=== PATIENT | female | born 1955 | race Caucasian/White ===

== ENCOUNTER → 2016-03-21 | Outpatient (CLI) | payer BC ==
--- NOTE | 2016-03-22 07:31 | RADRPT ---
PROCEDURE: Limited x-ray of both lower extremities. CLINICAL INDICATION: Bilateral leg pain. TECHNIQUE: Single frontal view of both lower extremities was obtained weight bearing from the hips t o the calves. COMPARISON: None. FINDINGS: The hips are normal. There is mild narrowing of the right knee lateral joint space, as well as media l and lateral osteophyte formation. Lateral osteophyte formation is also seen involving the left kn ee. IMPRESSION: 1. Normal hips. 2. Mild bilateral knee osteoarthrosis. RPTAT: QQ .Jeffery Mei MD, MD Date Time Electronically viewed and signed by .Jeffery Mei MD, MD on 03/22/2016 07:31 .R/
== END | disposition home or self-care (01) ==
LOC: HKI 10:12
PROVIDERS: ATTEND Orthopaedic Surgery
DX: Z01.818 Encounter for other preprocedural examination (principal); M17.0 Bilateral primary osteoarthritis of knee; M25.561 Pain in right knee; M25.562 Pain in left knee; Z88.0 Allergy status to penicillin
CPT/HCPCS: 77073; Z7500; G0463

== ENCOUNTER 2016-04-03 07:29 | Inpatient (IN) | payer BC ==
[2016-03-21 14:20] VITALS: BMI 24.4
[~2016-04-03] VITALS: Ht 175.3 cm; Wt 85.3 kg
[2016-04-03] VITALS (31 sets, daily range): BP systolic 89–127; BP diastolic 50–79; PULSE 59–87; RESP 11–30; Ht 175.3 cm; Wt 85.3 kg
[2016-04-03] MEDS: PAIN COCKTAIL - VANCOMYCIN IRR SCH ×14 (07:00→11:30)
[~2016-04-03 07:29] MED LIST: BUPIVACAINE LIPOSOME/PF 266 MG/20 ML VIAL INFIL SCH; CELECOXIB 400 MG PO X1 DOSE PO ONE; PREGABALIN 300 MG PO X1 PO ONE; TRANEXAMIC ACID 750 MG in SOD CHLORIDE 0.9% 100 ML IVPB SCH; TRANEXAMIC ACID 750 MG in SOD CHLORIDE 0.9% 92.5 ML IV ONE; VANCOMYCIN 1 GM/NS 250 ML X1 BEFORE INCISION IVPB ONE; oxyCODONE (CR) 10 MG TAB [oxyCONTIN] X1 DOSE PO ONE; traMADOL 50 MG TAB X 1 DOSE PO ONE
[2016-04-03] MEDS ORDERED: LACTATED RINGER'S 1,000 ML IV SCH (08:00)
[2016-04-03] MEDS ORDERED: LEVO137T3 PO (08:20)
[2016-04-03] MEDS ORDERED: TEMA30CA PO (08:21)
[2016-04-03] MEDS ORDERED: DICL75TA2 PO (08:21)
[2016-04-03] MEDS ORDERED: BACL10TA PO (08:21)
[2016-04-03] MEDS ORDERED: [UNRECOGNIZED DRUG - CODE] TOP (08:22)
[2016-04-03] MEDS ORDERED: HYDR-902 PO (08:23)
[2016-04-03] MEDS ORDERED: DOXE25CA43 PO (08:23)
[2016-04-03] MEDS ORDERED: MUPI15CR9 TOP (08:24)
[2016-04-03] MEDS ORDERED: DICL100G37 TOP (08:24)
[2016-04-03] MEDS ORDERED: [UNRECOGNIZED DRUG - CODE] PO (08:50)
[2016-04-03] MEDS ORDERED: TRANEXAMIC ACID 850 MG in SOD CHLORIDE 0.9% 91.5 ML IV ONE (09:00)
[2016-04-03] MEDS ORDERED: TRANEXAMIC ACID 850 MG in SOD CHLORIDE 0.9% 100 ML IVPB SCH (09:00)
--- NOTE | 2016-04-03 09:43 | HPN ---
Date/Time of Note Date/Time of Note DATE: 04/03/16 TIME: 09:42 Interval H&P Admission Note Pt. seen H&P reviewed: No system changes No changes from H&P on 03/22/16 by BOBBI Nugent MD Apr 03, 2016 09:43
[2016-04-03] MEDS ORDERED: SODIUM CL BACTERIOSTATIC 30 ML INJ ONE (10:01)
[2016-04-03] MEDS ORDERED: POLYMYXIN B 500000 UNIT INJ ONE (10:01)
[2016-04-03] MEDS ORDERED: VANCOMYCIN 1 GM INJ ONE (10:01)
[2016-04-03] MEDS ORDERED: MIDAZOLAM 1 MG/ML 2 ML INJ ONE (10:09)
[2016-04-03] MEDS ORDERED: PROPOFOL 100 ML ONE (10:09)
[2016-04-03] MEDS ORDERED: ONDANSETRON 4 MG INJ ONE (10:10)
[2016-04-03] MEDS ORDERED: DEXAMETHASONE 4 MG/ML 1 ML INJ ONE (10:10)
[2016-04-03] MEDS ORDERED: METOCLOPRAMIDE 10 MG INJ ONE (10:10)
[2016-04-03] MEDS ORDERED: FENTAnyl 50 MCG/ML VIAL ONE (10:12)
[2016-04-03] MEDS ORDERED: CEFAZOLIN 1 GM INJ ONE (10:38)
[2016-04-03] MEDS ORDERED: EPHEDrine SULFATE 50 MG/5 ML SYG ONE (10:51)
[2016-04-03] MEDS ORDERED: BACITRACIN 50000 UNITS INJ IRR ONE (11:24)
[2016-04-03] MEDS ORDERED: DIPHENHYDRAMINE 50 MG INJ IV PRN (12:00)
[2016-04-03] MEDS ORDERED: HYDROmorphONE (0.2 MG/ML) 10ML SYG IV PRN ×2 (12:00)
[2016-04-03] MEDS ORDERED: ONDANSETRON 4 MG INJ IV PRN ×2 (12:00→13:00)
[2016-04-03] MEDS ORDERED: MEPERIDINE 25 MG INJ IV PRN (12:00)
[2016-04-03] MEDS ORDERED: METOCLOPRAMIDE 10 MG INJ IV PRN (12:00)
[2016-04-03] MEDS: LACTATED RINGER'S 1,000 ML IV SCH ×2 (12:51→20:51)
--- NOTE | 2016-04-03 12:55 | OPPN ---
Date/Time of Note Date/Time of Note DATE: 04/03/16 TIME: 12:54 Operative/Procedure Note Dictatin # [id number] Pre-Operative Diagnosis Right Knee OA Post-Operative Diagnosis Same Procedure Right TKA Surgeon: BOBBI HOOD MD Mri Assistant: TESHA HINES PA-C Anesthesiologist: EFRAIN SUAZO MD Findings Severe OA Blood Usage/Administration None Implants/Grafts Depuy Attune TKA Estimated blood loss: 50 - 100 ml's Drains Hemovac x 1 Specimens Bone and soft tissue Complications: None Anesthesia type: spinal BOBBI HOOD MD Apr 03, 2016 12:55
[2016-04-03] MEDS ORDERED: HYDROmorphONE 1 MG/ML SYG IV PRN (13:00)
[2016-04-03] MEDS ORDERED: ZOLPIDEM 5 MG TAB PO PRN (13:00)
[2016-04-03] MEDS ORDERED: NA PHOSPHATE/BIPHOS 133 ML ENEMA PR PRN (13:00)
[2016-04-03] MEDS ORDERED: DIPHENHYDRAMINE 25 MG CAP PO PRN (13:00)
[2016-04-03] MEDS ORDERED: BISACODYL 10 MG SUPP PR PRN (13:00)
[2016-04-03] MEDS ORDERED: MAGNESIUM HYDROXIDE 30ML CUP PO PRN (13:00)
[2016-04-03] MEDS ORDERED: NACL 0.9% 3 ML SYG IV SCH (13:00)
[2016-04-03] MEDS ORDERED: ASPIRIN (EC) 325 MG TAB PO ONE (13:00)
--- NOTE | 2016-04-03 13:01 | PN ---
Date/Time of Note Date/Time of Note DATE: 04/03/16 TIME: 12:57 Assessment/Plan Lines/Catheters IV Catheter Type (from Nrsg): Peripheral IV Assessment/Plan Assessment/Plan Stable in PACU, s/p right TKA -cont abx -pain meds as needed -ASA/SCDs for DVT prophylaxis -OOB with PT -check AM labs -monitor drain -d/c patrick in AM XR of the right knee is pending at this time. Subjective 24 Hr Interval Summary Doing well in PACU. Denies pain. Moving all extremities. Exam/Review of Systems Vital Signs Vitals Vital Signs Date Time Temp Pulse Resp B/P Pulse Ox O2 Delivery O2 Flow Rate FiO2 04/03/16 09:18 97.5 81 16 127/79 99 Intake and Output 04/02/16 04/02/16 04/03/16 15:00 23:00 07:00 Intake Total 0 ml Balance 0 ml Exam Free Text/Dictation Dressing dry Incision clean, dry, and intact without redness or drainage Thigh soft 5/5 Quadriceps, Tibialis Anterior, EHL, Gastroc, Soleus, Peroneals Normal sensation Palpable DT/PT, CR <2 sec No distal edema TESHA HINES PA-C Apr 03, 2016 13:01
--- NOTE | 2016-04-03 13:39 | OPR ---
DATE OF OPERATION: 04/03/2016 PREOPERATIVE DIAGNOSIS: Right knee osteoarthritis. POSTOPERATIVE DIAGNOSIS: Right knee osteoarthritis. OPERATION PERFORMED: Right total knee arthroplasty. SURGEON: Bobbi Kenney MD MACHINE MOVER: MOUNIKA Smith COMPONENTS USED: DePuy Attune size 5 narrow femoral component, size 5 tibial baseplate, 7 mm polyethylene insert, and a 35 Poly Button. ANESTHESIA: Spinal plus general endotracheal intubation, plus periarticular injection. ANESTHESIOLOGIST: Nasima Denton MD TOURNIQUET TIME: 57 minutes. ESTIMATED BLOOD LOSS: 50 mL. INTRAVENOUS FLUIDS: 2 L of crystalloid. SPECIMENS: Bone and soft tissue. DRAINS: Hemovac x1. COMPLICATIONS: None. DISPOSITION: The patient tolerated the procedure well and was taken to the recovery room in stable condition. INDICATIONS: The patient is a 60-year-old woman who has had progressively worsening pain in the right knee with radiographic evidence of severe osteoarthritis. She has failed nonsurgical means of treatment to control her pain including activity modifications, pain medications, and intraarticular injections and ambulatory assist devices. Despite these measures, she has had worsening pain, and I felt she would benefit from a total knee arthroplasty. The risks, benefits, and alternatives of the procedure were explained in detail to the patient. I explained the risks of the surgery to include but not be limited to, bleeding and possible need for blood transfusion; infection; pain; stiffness; neurovascular injury with possible numbness, weakness, and/or paralysis anywhere from the knee down to the toes; fracture; instability; dislocation; wear and/or loosening of the prosthesis and possible need for future revision; blood clots; pulmonary embolism; and anesthetic complications such as heart attack, stroke, GI bleed, pneumonia, and/or . Ample time was allowed for the patient to ask questions, all of which were addressed and answered. The patient understood the risks involved and wished to proceed. Informed consent was signed prior to the procedure. PROCEDURE: The patient's right knee was initialed with a marking pen in the preoperative area to identify the correct operative site. The patient was brought to the operating room and transferred from the [facility] to the operating table where a spinal anesthetic was administered. The patient was then anesthetized and intubated. A Diane catheter was placed. A timeout was performed to confirm that the right leg was the correct operative site. The patient was given 2 g of Ancef within one hour prior to the procedure. A tourniquet was placed on the operative proximal thigh. The operative knee and lower extremity were prepped and draped in the usual sterile fashion. The operative lower extremity was elevated and exsanguinated with an Esmarch tourniquet. The proximal thigh tourniquet was inflated to 300 mmHg. The knee was flexed. A midline incision was made and carried down through the subcutaneous tissue and fat with sharp dissection. Limited medial and lateral flaps were raised. A median parapatellar arthrotomy approach was performed. Synovial fluid was normal in color and consistency. The patella was everted and the knee flexed. There were severe tricompartmental osteoarthritic changes noted. A medial release was performed at the joint line to the midcoronal plane. The ACL and PCL and remnants of the menisci were excised. The stepped drill was used to open up the femoral canal which was irrigated and sucked dry. The intramedullary guide sanya was passed up the femur, and the distal cutting block was pinned into place for a 5 degree valgus cut, taking 10 mm of bone off distally. The oscillating saw was used to make the cut. The tibia was subluxed anteriorly. The tibial cutoff jig was placed over the center of the talus distally and over the junction of the medial and middle third of the tibial tubercle proximally. The guide was pinned into place and the oscillating saw was used to make the cut. The tibia was sized. The extension gap was checked and accommodated a 7 mm spacer block with the knee in full extension. There was no varus or valgus instability. At this point, the femur was sized with the posterior referencing guide. Two holes were drilled in 3 degrees of external rotation. The two holes were in line with the transepicondylar axis, perpendicular to Geremias's line, and in line with the tibial cutoff jig brought up with the knee flexed 90 degrees and tensed with 2 lamina spreaders, suggesting the femoral rotation was correct. The four-in-one cutting block was pinned into place. The anterior and posterior cuts and chamfer cuts were made with the oscillating saw. The flexion gap was checked and accommodated the 7 mm spacer block at 90 degrees. There was no varus or valgus instability, suggesting the flexion and extension gaps were now equal. The central box was cut out on the femur. The tibia was drilled and punched in proper rotation. Trial components were placed into position with a trial insert. The patella was cut from 25 mm down to 15 mm and sized. Three holes were drilled and the trial button placed in position. With all the trials now in place, the knee was taken through range of motion and came to full extension as evidenced by the fact that with the foot on my abdomen and axial loading, there was no tendency for the knee to flex. The knee was able to be flexed to 125 degrees with good patellar tracking with no lateral tilt or subluxation. At this point, I was satisfied with the overall range of motion, stability, and patellar tracking. The trials were removed. The real components were opened. Two bags of cement were mixed, one with and one without premixed antibiotic. The knee was irrigated with antibiotic saline and sucked dry. Once the cement was in a doughy stage, the real components were cemented into place. The knee was held in full extension, and the patellar component was held with a patellar clamp. All excess cement was removed with curettes. As the cement was hardening, the synovial/capsular layer was infiltrated with a mixture of 150 mg of 0.5% Bupivacaine, 8 mg of Duramorph, 300 mcg of epinephrine, 30 mg of Toradol, 100 mcg of clonidine, 750 mg of cefuroxime and 86 mL of normal saline, followed by an injection of 266 mg of liposomal Bupivacaine. A Hemovac drain was placed in the deep portion of the wound and brought out the anterolateral thigh. Once the cement was completely hardened, the trial liner was removed, and the real insert was opened. The tourniquet was let down, and there was good hemostasis. The knee was then irrigated with a mixture of betadine/saline and then antibiotic saline with pulsatile lavage. The real insert was impacted into the tibia and reduced onto to the femur. The arthrotomy was closed with a few interrupted #1 Ethibond in a figure-of- eight fashion, and then closed in a watertight fashion with a running #2 Stratafix suture. Knee flexion was checked against gravity and came to 125 degrees. The subcutaneous layer was irrigated and closed with 2-0 Stratafix, and then 3-0 Stratafix and then andrew on the skin. The wound was covered with an occlusive dressing, and secured with cast padding and a bias dressing. The drain was secured with 3-0 nylon. The sponge and needle counts were correct at the end of the case. The patient was then awakened, extubated, and taken to the recovery room in stable condition. Dictated By: BOBBI HAMM/MILANA Conf#: [id number] DID#: [id number] MTDD
--- NOTE | 2016-04-03 13:41 | RADRPT ---
PROCEDURE: XR Knee. CLINICAL INDICATION: Left knee pain TECHNIQUE: Two views of the right knee are available for review. COMPARISON: None available FINDINGS: A cemented right total knee arthroplasty is present in near anatomic alignment without acute radiogr aphic abnormality. Recent surgical changes seen in the soft tissues. IMPRESSION: 1. Cemented right total knee arthroplasty in near anatomic alignment. RPTAT: AA .Son De La Torre MD, MD Date Time Electronically viewed and signed by .Son De La Torre MD, MD on 04/03/2016 13:40 .d/
[2016-04-03 13:58] LABS: HEMATOCRIT 35.5 % (37.0-47.0)
[2016-04-03 14:08] LABS: POTASSIUM 3.9 mmol/L (3.5-5.1)
[2016-04-03 14:11] LABS: CALCIUM 8.7 mg/dl (8.4-10.2); CREATININE 0.6 mg/dl (0.44-1.00)
[2016-04-03] MEDS: HYDROmorphONE (0.2 MG/ML) 10ML SYG IV PRN ×4 (14:11→14:36)
[2016-04-03] MEDS: [UNRECOGNIZED DRUG - REMARK] XX SCH ×2 (15:00→23:00)
[2016-04-03] MEDS ORDERED: BACITRACIN 50000 UNITS INJ ONE (15:03)
[2016-04-03] MEDS ORDERED: EXPAREL NOTE (BUPIVICAINE LIPOSOMAL) XX SCH (15:30)
[2016-04-03] MEDS ORDERED: TRANEXAMIC ACID 850 MG in SOD CHLORIDE 0.9% 100 ML IVPB ONE ×2 (16:00→19:00)
[2016-04-03] MEDS: traMADol 50 MG TAB PO SCH (18:00)
[2016-04-03] MEDS: ACETAMINOPHEN 1000MG/100ML IV 100 ML IVPB SCH ×2 (18:36→23:30)
[2016-04-03] MEDS: oxyCODONE 5 MG TAB PO PRN ×2 (18:36→23:30)
[2016-04-03] MEDS: PANTOPRAZOLE (EC) 40 MG TAB PO SCH (18:36)
--- NOTE | 2016-04-03 20:01 | QN ---
Documentation Comment [id number] ELLEN AGUSTIN MD Apr 03, 2016 20:00
[2016-04-03] MEDS: DOCUSATE SODIUM 100 MG CAP PO SCH (20:41)
[2016-04-03] MEDS: PREGABALIN 25 MG CAP PO SCH (20:41)
--- NOTE | 2016-04-03 20:44 | HP ---
DATE OF ADMISSION: 04/03/2016 HISTORY OF PRESENT ILLNESS: The patient is seen at the request of Dr. Kenney. The patient has a hi story of hypothyroidism, arthritis, underwent right total knee arthroplasty. The patient is being s een post procedure. Denies any chest pain, palpitations. Complaining of knee pain. PAST MEDICAL HISTORY: Positive for insomnia. The patient also is positive for arthritis and hypoth yroidism. The patient also has a history of arthroscopic knee surgery, ankle surgery. ALLERGY HISTORY: PENICILLIN. SOCIAL HISTORY: Negative. FAMILY HISTORY: Positive for diabetes mellitus. MEDICATION HISTORY: The patient at home is on: 1. Baclofen. 2. Diclofenac. 3. Desoximetasone. 4. Doxepin. 5. Hydrocodone. 6. Levothyroxine. 7. Bactroban. 8. Restoril. 9. Tenofovir. REVIEW OF SYSTEMS: HEENT: Unremarkable. RESPIRATORY: Unremarkable. CARDIOVASCULAR: Unremarkable. ABDOMEN: Unremarkable. EXTREMITIES: Pain. CENTRAL NERVOUS SYSTEM: Unremarkable. PHYSICAL EXAMINATION: GENERAL: The patient is awake and alert. VITAL SIGNS: Stable. HEAD: Atraumatic, normocephalic. Pupils equal, reactive to light. NECK: Supple. No JVD. LUNGS: Clear. CARDIOVASCULAR: S1, S2 are normal. ABDOMEN: Soft, nontender. Bowel sounds present. No palpable mass. EXTREMITIES: The patient has no cyanosis, clubbing or edema. Right knee dressing noted. Drainage noted. CENTRAL NERVOUS SYSTEM: The patient is awake, alert, moving also toes of lower extremity. IMPRESSION: 1. The patient is status post right total knee arthroplasty. 2. Hypothyroidism. 3. History of insomnia. PLAN AT THIS POINT: Continue current treatment. DVT prophylaxis once cleared by Dr[facility] Kenney. [facility]. The patient will be on MiraLax for constipation. Dictated By: ELLEN AGUSTIN MD BS/NTS Conf#: [id number] DID#: [id number]
[2016-04-03] MEDS: VANCOMYCIN 1 GM (PMX) 250 ML IVPB SCH (21:29)
[2016-04-04 00:10] VITALS: BP 108/55; PULSE 63; RESP 18
[2016-04-04] MEDS: ZOLPIDEM 5 MG TAB PO PRN (01:00)
[2016-04-04] MEDS: LACTATED RINGER'S 1,000 ML IV SCH ×3 (04:22→20:51)
[2016-04-04 05:06] VITALS: BP 106/59; PULSE 61; RESP 18
[2016-04-04 05:34] LABS: POTASSIUM 4.4 mmol/L (3.5-5.1)
[2016-04-04 05:35] LABS: HEMATOCRIT 32.9 % (37.0-47.0); HEMOGLOBIN 11.1 g/dl (12.0-16.0)
[2016-04-04 05:36] LABS: CREATININE 0.64 mg/dl (0.44-1.00)
[2016-04-04] MEDS: ACETAMINOPHEN 1000MG/100ML IV 100 ML IVPB SCH ×2 (05:50→11:53)
[2016-04-04] MEDS: PANTOPRAZOLE (EC) 40 MG TAB PO SCH ×2 (05:50→17:52)
[2016-04-04] MEDS: traMADol 50 MG TAB PO SCH ×4 (05:51→17:52)
[2016-04-04 06:07] LABS: ADD UMIC YES; URINE BILIRUBIN (Dip) NEGATIVE (NEGATIVE); URINE BLOOD (Dip) 3+ (NEGATIVE); URINE COLOR LT. YELLOW (YELLOW); URINE GLUCOSE (Dip) NEGATIVE (NEGATIVE); URINE KETONES (Dip) NEGATIVE (NEGATIVE); URINE LEUKOCYTE ESTERASE (Dip) NEGATIVE (NEGATIVE); URINE NITRITE (Dip) NEGATIVE (NEGATIVE); URINE TOTAL PROTEIN (Dip) NEGATIVE (NEGATIVE); URINE UROBILINOGEN (Dip) 0.2 E.U./dL (0.1-1.0)
[2016-04-04] MEDS: LEVOTHYROXINE 137 MCG TAB PO SCH (06:17)
[2016-04-04 06:36] LABS: URINE RBCS 0-2 /HPF (0)
[2016-04-04] MEDS: [UNRECOGNIZED DRUG - REMARK] XX SCH (07:00)
[2016-04-04 08:10] VITALS: BP 113/55; RESP 20
--- NOTE | 2016-04-04 08:49 | PN ---
Date/Time of Note Date/Time of Note DATE: 04/04/16 TIME: 08:47 Assessment/Plan Lines/Catheters IV Catheter Type (from Nrsg): Peripheral IV Diane in Place (from Nrsg): Yes Assessment/Plan Assessment/Plan Stable POD #1, s/p right TKA -d/c abx -drain removed -pain meds as needed -ASA/SCDs for DVT prophylaxis -OOB with PT -check AM labs -d/c planning. Possible d/c home tomorrow Subjective 24 Hr Interval Summary Doing well. No acute overnight events. Denies any significant pain. VSS, afebrile. Has not started PT yet. Exam/Review of Systems Vital Signs Vitals Vital Signs Date Time Temp Pulse Resp B/P Pulse Ox O2 Delivery O2 Flow Rate FiO2 04/04/16 08:10 98.1 90 20 113/55 99 04/04/16 05:06 Nasal Cannula 2.0 Intake and Output 04/03/16 04/03/16 04/04/16 15:00 23:00 07:00 Intake Total 2100 ml 308.5 ml 3100 ml Output Total 450 ml 400 ml 3000 ml Balance 1650 ml -91.5 ml 100 ml Exam Free Text/Dictation Hemovac: 0cc Dressing dry Incision clean, dry, and intact without redness or drainage Thigh soft 5/5 Quadriceps, Tibialis Anterior, EHL, Gastroc, Soleus, Peroneals Normal sensation Palpable DT/PT, CR <2 sec No distal edema Results Result Diagram: 04/04/16 0455 04/04/16 0455 TESHA HINES PA-C Apr 04, 2016 08:49
[2016-04-04] MEDS ORDERED: TENOFOVIR DISOPROXIL FUMARATE XX SCH (09:00)
[2016-04-04] MEDS: POLYETHYLENE GLYCOL 17 GM PACKET PO SCH (09:04)
[2016-04-04] MEDS: CELECOXIB 200 MG CAP PO SCH (09:04)
[2016-04-04] MEDS: PREGABALIN 25 MG CAP PO SCH ×2 (09:04→20:48)
[2016-04-04] MEDS: VANCOMYCIN 1 GM (PMX) 250 ML IVPB SCH (09:05)
[2016-04-04] MEDS: DOCUSATE SODIUM 100 MG CAP PO SCH ×2 (09:05→20:48)
[2016-04-04] MEDS: ASPIRIN (EC) 325 MG TAB PO SCH ×2 (09:05→20:48)
[2016-04-04] MEDS: oxyCODONE 5 MG TAB PO PRN ×3 (10:59→20:49)
[2016-04-04] MEDS: BISACODYL (EC) 5 MG TAB PO PRN (16:38)
[2016-04-04 19:00] VITALS: BP 125/62; RESP 20
--- NOTE | 2016-04-04 19:49 | PN ---
Date/Time of Note Date/Time of Note DATE: 04/04/16 TIME: 19:47 Assessment/Plan VTE Prophylaxis VTE Prophylaxis Intervention: other Lines/Catheters IV Catheter Type (from Nrs): Peripheral IV Urinary Cath still in place: Yes Reason Cath still needed: other (indicate) Assessment/Plan Chief Complaint/Hosp Course IMPRESSION: 1. The patient is status post right total knee arthroplasty. 2. Hypothyroidism. 3. History of insomnia. PLAN DVT PROPHYLAXIX PER DR HOOD Problems: Subjective 24 Hr Interval Summary Respiratory: no complaints Cardiovascular: no complaints Musculoskeletal: bone/joint pain (BETTER) Exam/Review of Systems Vital Signs Vitals Vital Signs Date Time Temp Pulse Resp B/P Pulse Ox O2 Delivery O2 Flow Rate FiO2 04/04/16 08:10 98.1 90 20 113/55 99 04/04/16 05:06 Nasal Cannula 2.0 Intake and Output 04/03/16 04/03/16 04/04/16 15:00 23:00 07:00 Intake Total 2100 ml 308.5 ml 3100 ml Output Total 450 ml 400 ml 3000 ml Balance 1650 ml -91.5 ml 100 ml Exam Respiratory: clear to auscultation Cardiovascular: regular rate and rhythm Gastrointestinal: soft Extremities: tenderness (RT KNEE ON MOVEMENT), No edema Results Result Diagram: 04/04/16 0455 04/04/16 0455 Results 24 hrs Laboratory Tests Test 04/04/16 04:55 04/04/16 05:30 Anion Gap 13 Blood Urea Nitrogen 13 Calcium Level 9.0 Carbon Dioxide Level 27 Chloride Level 104 Creatinine 0.64 Glucose Level 125 Hematocrit 32.9 L Hemoglobin 11.1 L Potassium Level 4.4 Sodium Level 140 Urine Bilirubin NEGATIVE Urine Clarity CLEAR Urine Color LT. YELLOW Urine Glucose NEGATIVE Urine Hemoglobin 3+ H Urine Ketones NEGATIVE Urine Leukocyte Esterase NEGATIVE Urine Microscopic RBC 0-2 Urine Microscopic WBC NONE SEEN Urine Nitrite NEGATIVE Urine Specific [place] <=1.005 L Urine Total Protein NEGATIVE Urine Urobilinogen 0.2 E.U./dL Urine pH 6.5 Medications Medications Current Medications Miscellaneous Information 1 ea NOTE XX ; Start 04/03/16 at 15:30; Stop 04/07/16 at 15:29 Doxepin HCl 25 mg 25 mg HS PRN PO ANXIETY; Start 04/03/16 at 13:00 Lactated Ringer's (Lr) 1,000 ml @ 125 mls/hr Q8H IV Last administered on 18:31; Admin Dose 125 MLS/HR; Start 04/03/16 at 12:51 Celecoxib (Celebrex) 200 mg DAILY PO Last administered on 04/04/16 09:04; Admin Dose 200 MG; Start 04/04/16 at 09:00 Tramadol HCl (Ultram) 50 mg Q6 PO Last administered on 04/04/16 17:52; Admin Dose 50 MG; Start 04/03/16 at 18:00; Stop 04/06/16 at 17:59 Oxycodone HCl (Roxicodone) 5 mg Q4H PRN PO PAIN LEVEL 1-3 Last administered on 04/04/16 16:36; Admin Dose 5 MG; Start 04/03/16 at 13:00 Oxycodone HCl (Roxicodone) 10 mg Q4H PRN PO PAIN LEVEL 4-7 Last administered on 04/03/16 23:30; Admin Dose 10 MG; Start 04/03/16 at 13:00 Hydromorphone HCl (Dilaudid) 1 mg Q3H PRN IV PAIN LEVEL 8-10; Start 04/03/16 at 13:00 Ondansetron HCl (Zofran Inj) 4 mg Q6H PRN IV NAUSEA AND/OR VOMITING Last administered on 04/03/16 15:12; Admin Dose 4 MG; Start 04/03/16 at 13:00 Magnesium Hydroxide (Milk Of Mag) 30 ml BID PRN PO CONSTIPATION; Start at 13:00 Sodium Biphosphate/ Sodium Phosphate (Fleet Enema) 133 ml DAILY PRN [place] CONSTIPATION; Start 04/03/16 at 13:00 Docusate Sodium (Colace) 100 mg BID PO Last administered on 04/04/16 09:05; Admin Dose 100 MG; Start 04/03/16 at 21:00 Diphenhydramine HCl (Benadryl) 25 mg Q6H PRN PO PRURITUS Last administered on 04:37; Admin Dose 25 MG; Start 04/03/16 at 13:00 Aspirin (Ecotrin) 325 mg BID PO Last administered on 04/04/16 09:05; Admin Dose 325 MG; Start 04/04/16 at 09:00 Pantoprazole (Protonix Tab) 40 mg BID@06,18 PO Last administered on 04/04/16 17:52; Admin Dose 40 MG; Start 04/03/16 at 18:00 Pregabalin (Lyrica) 50 mg BID PO Last administered on 04/04/16 09:04; Admin Dose 50 MG; Start 04/03/16 at 21:00 Polyethylene Glycol (Miralax) 17 gm DAILY PO Last administered on 04/04/16 09: 04; Admin Dose 17 GM; Start 04/04/16 at 09:00 Zolpidem Tartrate (Ambien) 10 mg HS PRN PO INSOMNIA Last administered on 01:00; Admin Dose 10 MG; Start 04/03/16 at 20:30 Bisacodyl (Dulcolax) 10 mg DAILY PRN PO CONSTIPATION Last administered on 16:38; Admin Dose 10 MG; Start 04/04/16 at 09:00 ELLEN AGUSTIN MD Apr 04, 2016 19:49
[2016-04-04] MEDS: DOXEPIN 25 MG CAP PO PRN (23:12)
[2016-04-05] MEDS: traMADol 50 MG TAB PO SCH ×4 (00:16→18:10)
[2016-04-05] MEDS: ZOLPIDEM 5 MG TAB PO PRN (01:26)
[2016-04-05] MEDS: oxyCODONE 5 MG TAB PO PRN ×2 (01:59→06:34)
[2016-04-05] MEDS: LACTATED RINGER'S 1,000 ML IV SCH ×3 (04:51→21:00)
[2016-04-05 05:39] LABS: HEMATOCRIT 32.3 % (37.0-47.0); HEMOGLOBIN 10.9 g/dl (12.0-16.0)
[2016-04-05 05:56] LABS: POTASSIUM 3.8 mmol/L (3.5-5.1)
[2016-04-05 05:59] LABS: CREATININE 0.67 mg/dl (0.44-1.00)
[2016-04-05 06:00] LABS: CALCIUM 8.6 mg/dl (8.4-10.2)
[2016-04-05] MEDS: PANTOPRAZOLE (EC) 40 MG TAB PO SCH ×2 (06:29→18:09)
[2016-04-05] MEDS: LEVOTHYROXINE 137 MCG TAB PO SCH (06:29)
[2016-04-05 08:32] VITALS: BP 121/59; RESP 18
--- NOTE | 2016-04-05 09:28 | PN ---
Date/Time of Note Date/Time of Note DATE: 04/04/16 TIME: 08:27 A 60 yeal female s/p Righr knee arthroplasty under Spinal and TIVA. POD # 1. pain is controlled, no N./V, or itching. Back is clean. Assessment/Plan VTE Prophylaxis VTE Prophylaxis Intervention: SCD's Lines/Catheters IV Catheter Type (from Nrsg): Peripheral IV Urinary Cath still in place: No Exam/Review of Systems Vital Signs Vitals Vital Signs Date Time Temp Pulse Resp B/P Pulse Ox O2 Delivery O2 Flow Rate FiO2 04/05/16 08:32 98.0 97 18 121/59 95 04/04/16 05:06 Nasal Cannula 2.0 Intake and Output 04/04/16 04/04/16 04/05/16 15:00 23:00 07:00 Intake Total 2680 ml 950 ml Output Total 1600 ml 1200 ml Balance 1080 ml -250 ml Results Result Diagram: 04/05/16 0415 04/05/16 0445 Results 24 hrs Laboratory Tests Test 04/05/16 04:15 04/05/16 04:45 Hematocrit 32.3 L Hemoglobin 10.9 L Anion Gap 13 Blood Urea Nitrogen 17 Calcium Level 8.6 Carbon Dioxide Level 28 Chloride Level 102 Creatinine 0.67 Glucose Level 108 Potassium Level 3.8 Sodium Level 139 Medications Medications Current Medications Miscellaneous Information 1 ea NOTE XX ; Start 04/03/16 at 15:30; Stop 04/07/16 at 15:29 Doxepin HCl 25 mg 25 mg HS PRN PO ANXIETY Last administered on 04/04/16 23:12 ; Admin Dose 25 MG; Start 04/03/16 at 13:00 Lactated Ringer's (Lr) 1,000 ml @ 125 mls/hr Q8H IV Last administered on 18:31; Admin Dose 125 MLS/HR; Start 04/03/16 at 12:51 Celecoxib (Celebrex) 200 mg DAILY PO Last administered on 04/04/16 09:04; Admin Dose 200 MG; Start 04/04/16 at 09:00 Tramadol HCl (Ultram) 50 mg Q6 PO Last administered on 04/05/16 06:29; Admin Dose 50 MG; Start 04/03/16 at 18:00; Stop 04/06/16 at 17:59 Oxycodone HCl (Roxicodone) 5 mg Q4H PRN PO PAIN LEVEL 1-3 Last administered on 04/05/16 06:34; Admin Dose 5 MG; Start 04/03/16 at 13:00 Oxycodone HCl (Roxicodone) 10 mg Q4H PRN PO PAIN LEVEL 4-7 Last administered on 04/03/16 23:30; Admin Dose 10 MG; Start 04/03/16 at 13:00 Hydromorphone HCl (Dilaudid) 1 mg Q3H PRN IV PAIN LEVEL 8-10; Start 04/03/16 at 13:00 Ondansetron HCl (Zofran Inj) 4 mg Q6H PRN IV NAUSEA AND/OR VOMITING Last administered on 04/03/16 15:12; Admin Dose 4 MG; Start 04/03/16 at 13:00 Magnesium Hydroxide (Milk Of Mag) 30 ml BID PRN PO CONSTIPATION; Start at 13:00 Sodium Biphosphate/ Sodium Phosphate (Fleet Enema) 133 ml DAILY PRN [place] CONSTIPATION; Start 04/03/16 at 13:00 Docusate Sodium (Colace) 100 mg BID PO Last administered on 04/04/16 20:48; Admin Dose 100 MG; Start 04/03/16 at 21:00 Diphenhydramine HCl (Benadryl) 25 mg Q6H PRN PO PRURITUS Last administered on 04:37; Admin Dose 25 MG; Start 04/03/16 at 13:00 Aspirin (Ecotrin) 325 mg BID PO Last administered on 04/04/16 20:48; Admin Dose 325 MG; Start 04/04/16 at 09:00 Pantoprazole (Protonix Tab) 40 mg BID@06,18 PO Last administered on 04/05/16 06:29; Admin Dose 40 MG; Start 04/03/16 at 18:00 Pregabalin (Lyrica) 50 mg BID PO Last administered on 04/04/16 20:48; Admin Dose 50 MG; Start 04/03/16 at 21:00 Polyethylene Glycol (Miralax) 17 gm DAILY PO Last administered on 04/04/16 09: 04; Admin Dose 17 GM; Start 04/04/16 at 09:00 Zolpidem Tartrate (Ambien) 10 mg HS PRN PO INSOMNIA Last administered on 01:26; Admin Dose 10 MG; Start 04/03/16 at 20:30 Bisacodyl (Dulcolax) 10 mg DAILY PRN PO CONSTIPATION Last administered on 16:38; Admin Dose 10 MG; Start 04/04/16 at 09:00 EFRAIN SUAZO MD Apr 05, 2016 09:28
[2016-04-05] MEDS: ASPIRIN (EC) 325 MG TAB PO SCH ×2 (09:53→20:04)
[2016-04-05] MEDS: CELECOXIB 200 MG CAP PO SCH (09:53)
[2016-04-05] MEDS: POLYETHYLENE GLYCOL 17 GM PACKET PO SCH (09:53)
[2016-04-05] MEDS: DOCUSATE SODIUM 100 MG CAP PO SCH ×2 (09:53→20:04)
[2016-04-05] MEDS: PREGABALIN 25 MG CAP PO SCH ×2 (09:53→21:00)
--- NOTE | 2016-04-05 11:05 | PN ---
Date/Time of Note Date/Time of Note DATE: 04/05/16 TIME: 11:04 Assessment/Plan Lines/Catheters IV Catheter Type (from Nrsg): Peripheral IV Diane in Place (from Nrsg): No Assessment/Plan Assessment/Plan Stable POD #2, s/p right TKA -pain meds as needed, switch from oxycodone to norco -ASA/SCDs -OOB with PT -dressing changed today -check AM labs -d/c planning. Will likely go home tomorrow Subjective 24 Hr Interval Summary Doing well. No acute overnight events. Mild pain with bending the knee. VSS, afebrile. Would like to go home tomorrow. Exam/Review of Systems Vital Signs Vitals Vital Signs Date Time Temp Pulse Resp B/P Pulse Ox O2 Delivery O2 Flow Rate FiO2 04/05/16 08:32 98.0 97 18 121/59 95 04/04/16 05:06 Nasal Cannula 2.0 Intake and Output 04/04/16 04/04/16 04/05/16 15:00 23:00 07:00 Intake Total 2680 ml 950 ml Output Total 1600 ml 1200 ml Balance 1080 ml -250 ml Exam Free Text/Dictation Dressing dry Incision clean, dry, and intact without redness or drainage Thigh soft 5/5 Quadriceps, Tibialis Anterior, EHL, Gastroc, Soleus, Peroneals Normal sensation Palpable DT/PT, CR <2 sec No distal edema Results Result Diagram: 04/05/16 0415 04/05/16 0445 TESHA HINES PA-C Apr 05, 2016 11:05
[2016-04-05] MEDS: HYDROCODONE/APAP (10/325) TAB PO PRN ×3 (11:24→20:01)
[2016-04-05 19:00] VITALS: BP 128/61; RESP 18
--- NOTE | 2016-04-05 19:57 | PN ---
Date/Time of Note Date/Time of Note DATE: 04/05/16 TIME: 19:56 Assessment/Plan VTE Prophylaxis VTE Prophylaxis Intervention: other Lines/Catheters IV Catheter Type (from Nrs): Peripheral IV Urinary Cath still in place: No Assessment/Plan Chief Complaint/Hosp Course IMPRESSION: 1. The patient is status post right total knee arthroplasty. 2. Hypothyroidism. 3. History of insomnia. PLAN DVT PROPHYLAXIX PER DR HOOD pain meds Problems: Subjective 24 Hr Interval Summary Respiratory: no complaints Cardiovascular: no complaints Musculoskeletal: bone/joint pain (+) Exam/Review of Systems Vital Signs Vitals Vital Signs Date Time Temp Pulse Resp B/P Pulse Ox O2 Delivery O2 Flow Rate FiO2 04/05/16 08:32 98.0 97 18 121/59 95 04/04/16 05:06 Nasal Cannula 2.0 Intake and Output 04/04/16 04/04/16 04/05/16 15:00 23:00 07:00 Intake Total 2680 ml 950 ml Output Total 1600 ml 1200 ml Balance 1080 ml -250 ml Exam Neck: supple Respiratory: clear to auscultation Cardiovascular: regular rate and rhythm Gastrointestinal: soft Musculoskeletal: nl extremities to inspection Results Result Diagram: 04/05/16 0415 04/05/16 0445 Results 24 hrs Laboratory Tests Test 04/05/16 04:15 04/05/16 04:45 Hematocrit 32.3 L Hemoglobin 10.9 L Anion Gap 13 Blood Urea Nitrogen 17 Calcium Level 8.6 Carbon Dioxide Level 28 Chloride Level 102 Creatinine 0.67 Glucose Level 108 Potassium Level 3.8 Sodium Level 139 Medications Medications Current Medications Miscellaneous Information 1 ea NOTE XX ; Start 04/03/16 at 15:30; Stop 04/07/16 at 15:29 Doxepin HCl 25 mg 25 mg HS PRN PO ANXIETY Last administered on 04/04/16 23:12 ; Admin Dose 25 MG; Start 04/03/16 at 13:00 Lactated Ringer's (Lr) 1,000 ml @ 125 mls/hr Q8H IV Last administered on 18:31; Admin Dose 125 MLS/HR; Start 04/03/16 at 12:51 Celecoxib (Celebrex) 200 mg DAILY PO Last administered on 04/05/16 09:53; Admin Dose 200 MG; Start 04/04/16 at 09:00 Tramadol HCl (Ultram) 50 mg Q6 PO Last administered on 04/05/16 18:10; Admin Dose 50 MG; Start 04/03/16 at 18:00; Stop 04/06/16 at 17:59 Hydromorphone HCl (Dilaudid) 1 mg Q3H PRN IV PAIN LEVEL 8-10; Start 04/03/16 at 13:00 Ondansetron HCl (Zofran Inj) 4 mg Q6H PRN IV NAUSEA AND/OR VOMITING Last administered on 04/03/16 15:12; Admin Dose 4 MG; Start 04/03/16 at 13:00 Magnesium Hydroxide (Milk Of Mag) 30 ml BID PRN PO CONSTIPATION; Start at 13:00 Sodium Biphosphate/ Sodium Phosphate (Fleet Enema) 133 ml DAILY PRN WI CONSTIPATION; Start 04/03/16 at 13:00 Docusate Sodium (Colace) 100 mg BID PO Last administered on 04/05/16 09:53; Admin Dose 100 MG; Start 04/03/16 at 21:00 Diphenhydramine HCl (Benadryl) 25 mg Q6H PRN PO PRURITUS Last administered on 04:37; Admin Dose 25 MG; Start 04/03/16 at 13:00 Aspirin (Ecotrin) 325 mg BID PO Last administered on 04/05/16 09:53; Admin Dose 325 MG; Start 04/04/16 at 09:00 Pantoprazole (Protonix Tab) 40 mg BID@06,18 PO Last administered on 04/05/16 18:09; Admin Dose 40 MG; Start 04/03/16 at 18:00 Pregabalin (Lyrica) 50 mg BID PO Last administered on 04/05/16 09:53; Admin Dose 50 MG; Start 04/03/16 at 21:00 Polyethylene Glycol (Miralax) 17 gm DAILY PO Last administered on 04/05/16 09: 53; Admin Dose 17 GM; Start 04/04/16 at 09:00 Zolpidem Tartrate (Ambien) 10 mg HS PRN PO INSOMNIA Last administered on 01:26; Admin Dose 10 MG; Start 04/03/16 at 20:30 Bisacodyl (Dulcolax) 10 mg DAILY PRN PO CONSTIPATION Last administered on 16:38; Admin Dose 10 MG; Start 04/04/16 at 09:00 Acetaminophen/ Hydrocodone Bitart ([place] ()) 1 tab Q4H PRN PO PAIN Last administered on 04/05/16 15:44; Admin Dose 1 TAB; Start 04/05/16 at 11:30 ELLEN AGUSTIN MD Apr 05, 2016 19:57
[2016-04-05] MEDS: DOXEPIN 25 MG CAP PO PRN (20:06)
[2016-04-06] MEDS: HYDROCODONE/APAP (10/325) TAB PO PRN ×4 (00:35→13:42)
[2016-04-06] MEDS: ZOLPIDEM 5 MG TAB PO PRN (01:14)
[2016-04-06] MEDS: LACTATED RINGER'S 1,000 ML IV SCH ×2 (04:51→12:09)
[2016-04-06] MEDS: LEVOTHYROXINE 137 MCG TAB PO SCH (05:26)
[2016-04-06] MEDS: PANTOPRAZOLE (EC) 40 MG TAB PO SCH (05:26)
[2016-04-06] MEDS: traMADol 50 MG TAB PO SCH ×3 (05:38→12:25)
[2016-04-06 05:54] LABS: ADD SCAN DIFF NO
[2016-04-06 05:58] LABS: BASOPHIL # 0.1 10^3/ul (0.0-0.1); BASOPHILS % 0.9 % (0.0-2.0); EOSINOPHILS # 0.3 10^3/ul (0.0-0.5); EOSINOPHILS % 3.5 % (0.0-7.0); HEMOGLOBIN 10.3 g/dl (12.0-16.0); LYMPHOCYTES # 1.7 10^3/ul (0.8-2.9); LYMPHOCYTES % 21.3 % (15.0-51.0); MEAN CORPUSCULAR HEMOGLOBIN 29.9 pg (29.0-33.0); MEAN CORPUSCULAR HGB CONC 33.2 g/dl (32.0-37.0); MEAN CORPUSCULAR VOLUME 90.1 fl (82.0-101.0); MEAN PLATELET VOLUME 10.4 fl (7.4-10.4); MONOCYTES % 11.8 % (0.0-11.0); NEUTROPHIL # 5.1 10^3/ul (1.6-7.5); NEUTROPHILS % 62.3 % (39.0-77.0); PLATELET COUNT 214 10^3/UL (140-415); RED BLOOD COUNT 3.44 10^6/ul (4.20-5.40); RED CELL DISTRIBUTION WIDTH 12.9 % (11.5-14.5); WHITE BLOOD COUNT 8.2 10^3/ul (4.8-10.8)
[2016-04-06 06:09] LABS: POTASSIUM 3.9 mmol/L (3.5-5.1)
[2016-04-06 06:11] LABS: CREATININE 0.67 mg/dl (0.44-1.00)
[2016-04-06 06:12] LABS: CALCIUM 8.6 mg/dl (8.4-10.2)
--- NOTE | 2016-04-06 07:28 | PDOCDIS ---
Discharge Instructions DIAGNOSIS Discharge Diagnosis: s/p right TKA CONDITION Patient Condition: Good HOME CARE INSTRUCTIONS: Diet Instructions: Regular ACTIVITY: Activity Restrictions: Slowly Increase Activity Rest between Activity Avoid heavy lifting Do not operate Machinery Do not operate Power Tool Avoid Heavy Housework Keep Limb Elevated Bathing Restrictions: Shower FOLLOW UP/APPOINTMENTS Appointments follow up in the office on 04/13/16 OTHER ORDERS: Other Orders: S/P TKA Physical Therapy: Three times per week at home x 2 weeks Daily in Rehab/SNF WB STATUS: WBAT 1. Strengthening exercises for both upper and un-operated lower extremities. 2. Gait training with front wheeled walker 3. Active range of motion exercises to operative knee. 4. When not working on knee range of motion exercises, distal towel roll under operative ankle/distal calf to promote full extension. 5. DO NOT PUT ANYTHING BEHIND OPERATIVE KNEE!!! 6. Quadriceps and hamstring strengthening. 7. May switch to cane in contra lateral hand 6 weeks after surgery. 8. Physical Therapy can open case if nursing is not available. 9. Use Ice Machine as instructed from date of surgery while at rest 3X/day. 10. Patient requires mobile SCDs to reduce risk of developing DVT following TKA. Patient will use the mobile SCDs for 30 days postoperatively. Bathing assistance by home health aide twice weekly if Medicare patient. Occupational Therapy: Evaluation for assistive devices and ADL training. Wound Care: Keep incision dry & covered with Tegaderm until first visit with Dr. Kenney Anticoagulation Orders: Enteric Coated Aspirin 325 mg po bid x 6 weeks from date of surgery Follow-up:Call for an appointment with Dr. Kenney in 1 week after discharged from hospital at DME Orders: VIRI, 3-in-1 Commode, Polar ice machine, Mobile SCDs TESHA HINES PA-C Apr 06, 2016 07:28
[2016-04-06] MEDS ORDERED: HYDR-902 PO (07:30)
[2016-04-06] MEDS ORDERED: TRAM50TA2 PO (07:30)
[2016-04-06] MEDS ORDERED: GABA100C PO (07:30)
[2016-04-06] MEDS ORDERED: PANT40TA4 PO (07:30)
[2016-04-06] MEDS ORDERED: ASPI325T32 PO (07:30)
[2016-04-06 08:16] VITALS: BP 121/57; RESP 83
[2016-04-06] MEDS: CELECOXIB 200 MG CAP PO SCH (08:54)
[2016-04-06] MEDS: BISACODYL (EC) 5 MG TAB PO PRN (08:55)
[2016-04-06] MEDS: DOCUSATE SODIUM 100 MG CAP PO SCH (08:55)
[2016-04-06] MEDS: ASPIRIN (EC) 325 MG TAB PO SCH (08:55)
--- NOTE | 2016-04-06 08:56 | PN ---
Date/Time of Note Date/Time of Note DATE: 04/06/16 TIME: 08:54 Assessment/Plan Lines/Catheters IV Catheter Type (from Nrsg): Saline Lock Diane in Place (from Nrsg): No Assessment/Plan Assessment/Plan Stable POD #3, s/p right TKA -pain meds as needed -ASA/SCDs for DVT prophylaxis -dressing changed -OOB with PT -d/c home today -follow up in the office on 04/13/16 Subjective 24 Hr Interval Summary Doing well. No acute overnight events. Pain much improved overall. VSS, afebrile. Will plan to go home today. Exam/Review of Systems Vital Signs Vitals Vital Signs Date Time Temp Pulse Resp B/P Pulse Ox O2 Delivery O2 Flow Rate FiO2 04/06/16 08:16 97.8 83 83 121/57 94 04/04/16 05:06 Nasal Cannula 2.0 Intake and Output 04/05/16 04/05/16 04/06/16 15:00 23:00 07:00 Intake Total 100 ml 700 ml Balance 100 ml 700 ml Exam Free Text/Dictation Dressing dry Incision clean, dry, and intact without redness or drainage Thigh soft 5/5 Quadriceps, Tibialis Anterior, EHL, Gastroc, Soleus, Peroneals Normal sensation Palpable DT/PT, CR <2 sec No distal edema Results Result Diagram: 04/06/16 0413 04/06/16 0413 TESHA HINES PA-C Apr 06, 2016 08:56
[2016-04-06] MEDS: POLYETHYLENE GLYCOL 17 GM PACKET PO SCH (08:59)
[2016-04-06] MEDS: PREGABALIN 25 MG CAP PO SCH (09:44)
--- NOTE | 2016-04-06 14:22 | DS ---
DATE OF ADMISSION: 04/03/2016 DATE OF DISCHARGE: 04/06/2016 CONDITION UPON DISCHARGE: Stable. ADMITTING DIAGNOSIS: Right knee osteoarthritis. DISCHARGE DIAGNOSIS: Status post right total knee arthroplasty. PROCEDURE PERFORMED: Right total knee arthroplasty. HOSPITAL COURSE: This is a 60-year-old female who was seen in the clinic initially complaining of right knee pain. She had undergone conservative modalities unsuccessfully and it was thought she would benefit from a right total knee arthroplasty. On 04/03/2016, the patient was admitted and taken to the operating room where she underwent a right total knee arthroplasty. There were no intraoperative complications. The patient tolerated the procedure well. She was taken to the recovery room in stable condition. The pain was well controlled with oral pain medication. She was started on aspirin and SCDs for DVT prophylaxis. She remained hemodynamically stable and neurovascularly intact throughout her hospital stay. On postoperative day 1, she began physical therapy and continued to make good progress. She was deemed clinically stable for discharge on postoperative day 3. Prior to discharge, the incision was inspected and noted to be clean, dry and intact. Dressing changes were done prior to the patient going home. LABORATORY ANALYSIS: Hemoglobin of 10.3, hematocrit 31.0. Chemistry panel was within normal limits. DISCHARGE MEDICATIONS: 1. [place] 10/325 mg. 2. Tramadol 50 mg. 3. Aspirin 325 mg. 4. Gabapentin 100 mg. 5. Protonix 40 mg. Additionally, the patient is to resume all of her normal home medications. DISCHARGE INSTRUCTIONS: The patient will be discharged home in stable condition. She is to resume a normal diet. Activity includes weightbearing as tolerated on the right lower extremity. She would begin physical therapy with home health. She will be discharged home with the medications noted above and is to resume all of her normal home medications. She is to call the office or return to the emergency room for any concerns including increased redness, swelling, drainage, fever or any concern regarding the operation or site of incision. FOLLOWUP: The patient is to follow up in the office on 04/13/2016. Dictated By: TESHA SANDERSON/MILANA Conf#: [id number] DID#: [id number] [facility] HOSPITALAbdulaziz
== END 2016-04-06 17:00 | disposition home or self-care (01) | DRG 470 ==
LOC: REC 07:29 → MS1 15:01
PROVIDERS: ADMIT Orthopaedic Surgery; ATTEND Orthopaedic Surgery
PROC: 0SRC0J9 Replacement of Right Knee Joint with Synthetic Substitute, Cemented, Open Approach (ICD-10-PCS; principal; 2016-04-03 10:00)
DX: M17.11 Unilateral primary osteoarthritis, right knee (principal); E03.9 Hypothyroidism, unspecified; Z88.0 Allergy status to penicillin; F41.9 Anxiety disorder, unspecified; G47.00 Insomnia, unspecified
CPT/HCPCS: 73560; 80048; 81001; 81003; 85014; 85018; 85025; 86850; 86900; 86901; 86920; 87081; 87086; 88304; 88311; 97110; 97116; 97162; 97167; 97530; Z7610; C1776; C9290; J0131; J0171; J0690; J0735; J1100; J1170; J1885; J2175; J2250; J2274; J2405; J2765; J3010; J3370; J7120

== ENCOUNTER 2016-04-13 13:20 | Emergency (ER) | payer BC ==
[~2016-04-13] VITALS: Ht 167.6 cm; Wt 75.0 kg
[2016-04-13 13:26] VITALS: Ht 167.6 cm; Wt 75.0 kg
--- NOTE | 2016-04-13 14:38 | RADRPT ---
PROCEDURE: US right lower extremity veins. CLINICAL INDICATION: Right leg pain and swelling. Postop right knee surgery. TECHNIQUE: Multiple longitudinal and transverse images of the right lower extremity veins were obt ained with kang scale and color Doppler imaging. The common femoral vein, femoral vein, and poplitea l vein were evaluated. 2D grayscale measurements with compression sonography, pulsed Doppler, color Doppler, and pulsed Doppler with augmentation. COMPARISON: No prior studies are available for comparison. FINDINGS: The right common femoral, femoral and popliteal veins are normally compressible throughout. Color f low demonstrates normal filling of the vessels. Normal waveforms are visualized and there is normal response to augmentation. IMPRESSION: 1. No evidence of deep vein thrombosis involving the right lower extremity. RPTAT: QQ .Sarabjit Jamison MD, Date Time Electronically viewed and signed by .Sarabjit Jamison MD, on 04/13/2016 14:37 .R/
[2016-04-13 15:15] VITALS: BP 134/75; PULSE 87; RESP 16; TEMP 98.2
--- NOTE | 2016-04-13 15:18 | ERD ---
ER Documentation Chief Complaint Date/Time DATE: 04/13/16 TIME: 15:14 Chief Complaint REFERRED BY PCP TO R/O RT LEG DVT. KNEE REPLACEMENT SX ON 04/03. HPI This is a very pleasant 60-year-old female that presents to the emergency department postop day 10 from a right total knee replacement performed by Dr. Kenney. The patient had a postoperative clinic evaluation today with her andrew removed and was sent to the emergency department to be further evaluated for mild swelling and to rule out a deep vein thrombosis. The patient states she has had no shortness of breath at rest or exertion. She denies any redness or purulent drainage from the wound. She had no fevers no shaking or chills. She denies any calf tenderness. ROS All systems reviewed and are negative except as per history of present illness. Medications Home Meds Active Scripts Gabapentin* (Neurontin*) 100 Mg Capsule, 100 MG PO TID, #90 CAP Prov:TESHA HINES PA-C 04/06/16 Hydrocodone/Acetaminophen ([place] 10-325 Tablet) 1 Each Tablet, 1 EACH PO Q6 Y for PAIN, #60 TAB Prov:TESHA HINES PA-C 04/06/16 Tramadol HCl (Tramadol HCl) 50 Mg Tablet, 50 MG PO Q6 for 30 Days, #60 TAB Prov:TESHA HINES PA-C 04/06/16 Pantoprazole* (Pantoprazole*) 40 Mg Tablet., 40 MG PO BID@06,18 for 40 Days, # 40 Prov:TESHA HINES PA-C 04/06/16 Aspirin (Aspir-Kayli) 325 Mg Tablet., 325 MG PO BID for 42 Days, #84 Prov:TESHA HINES PA-C 04/06/16 Reported Medications Diclofenac Sodium* (Voltaren* Gel) 1% -100 Gm Gel, 2 GM TOP DAILY Y for PAIN, # 1 TUB 04/03/16 Mupirocin Calcium* (Mupirocin*) 2% - 15 Gram Cream..g., 1 APPLIC TOP DAILY Y for RASH, #1 TUB 04/03/16 Doxepin Hcl* (Doxepin Hcl*) 25 Mg Capsule, 25 MG PO HS Y for ANXIETY, CAP 04/03/16 Hydrocodone/Acetaminophen ([place] 10-325 Tablet) 1 Each Tablet, 1 EACH PO BID Y for SEVERE PAIN LEVEL 7-10, TAB 04/03/16 Desoximetasone* (Desoximetasone*) 0.05%-15GM Gel..gram., 1 APPLIC TOP DAILY Y for RASH, #1 EA 04/03/16 Temazepam* (Temazepam*) 30 Mg Capsule, 30 MG PO HS Y for INSOMNIA, CAP 04/03/16 Baclofen* (Baclofen*) 10 Mg Tablet, 10 MG PO DAILY Y for MUSCLE SPASMS, TAB 04/03/16 Levothyroxine Sodium* (Levothyroxine Sodium*) 137 Mcg Tablet, 137 MCG PO BEFORE BREAKFAST, #30 TAB 04/03/16 Discontinued Reported Medications Tenofovir Disoproxil Fumarate (Viread) 200 Mg Tablet, 200 MG PO DAILY, TAB 04/03/16 Diclofenac Sodium* (Diclofenac Sodium*) 75 Mg Tablet.dr, 75-150 MG PO BID, #60 TAB 04/03/16 Allergies Allergies: Coded Allergies: Penicillins (Verified Allergy, Unknown, 04/13/16) PMhx/Soc History of Surgery: Yes (right ankle surgery, right knee) Anesthesia Reaction: No Hx Neurological Disorder: No Hx Respiratory Disorders: No Hx Cardiac Disorders: No Hx Psychiatric Problems: No Hx Miscellaneous Medical Probl: Yes (hypothyroidism, arthritis, insomnia) Hx Alcohol Use: Yes (social) Hx Substance Use: No Hx Tobacco Use: No Smoking Status: Never smoker Physical Exam Vitals Vital Signs Date Time Temp Pulse Resp B/P Pulse Ox O2 Delivery O2 Flow Rate FiO2 04/13/16 13:26 98.2 88 16 123/72 97 Physical Exam Constitutional:Well-developed. Well-nourished. HEENT:Normocephalic. Atraumatic.Pupils were equal round reactive to light. Moist mucous membranes.No tonsillar exudates. Respiratory: Not using accessory muscles of respiration.Lungs were clear to auscultation bilaterally. No rhonchi. No rales. No wheezing. Cardiovascular: Regular rate regular rhythm.No murmurs. No rubs were appreciated.S1, S2 normal. Distal pulses are palpable 2+ bilaterally. Muscle skeletal: Decreased range of motion the right lower extremity secondary to recent surgical intervention. Normal muscle tone.No assymetrical calf tenderness or swelling. Skin: No petechia, no purpura. No lesions on the palms or the soles of the feet. No maculopapular rash. Surgical incision site over the anterior aspect of the right knee was clean dry and intact with no surrounding erythema fluctuance or induration. Pain not out of proportion to physical exam. NEURO: Patient was alert, awake, orientated x3.No facial droop. Gait observed and normal with no ataxia.Speech had regular rate and rhythm. No focal neurological deficits. Procedures/MDM This is a very pleasant female presents to the emergency department with mild postoperative swelling. She was sent to the emergency department to rule out a deep vein thrombosis. Venous duplex ultrasound was negative which was reviewed by both myself and the radial. I spoke with her surgeon Dr. Kenney and the patient was discharged home to follow-up with Dr. Kenney in the next 4 weeks for postoperative follow-up. There is no evidence of postoperative infection. The patient was discharged home in fair condition. They were instructed to return to the emergency department at any time if there was any worsening of their condition. The patient stated they would follow up with their PCP in the next 24-48 hours to initiate a suitable medication regimen under the care of their PCP as well as to allow their PCP to monitor any drug reactions. The patient was discharged home with prescriptions after they gave informed consent to the new medication. They were also fully informed by myself on the adverse effects and adverse drug interactions in order to provide adequate safeguards to prevent possible adverse reactions to medications. Departure Diagnosis: Primary Impression: Postop check Condition: Fair ANN-MARIE DOMINGUEZ Apr 13, 2016 15:18
== END 2016-04-13 15:16 | disposition home or self-care (01) ==
LOC: E/R 13:20
DX: G89.18 Other acute postprocedural pain (principal); E03.9 Hypothyroidism, unspecified; Z96.651 Presence of right artificial knee joint; Z79.82 Long term (current) use of aspirin
CPT/HCPCS: 93971; Z7502

== ENCOUNTER → 2016-04-13 | Outpatient (CLI) | payer BC ==
[~2016-04-13] MED LIST changes: +ASPI325T32 PO; +BACL10TA PO; -BUPIVACAINE LIPOSOME/PF 266 MG/20 ML VIAL INFIL SCH; -CELECOXIB 400 MG PO X1 DOSE PO ONE; +DICL100G37 TOP; +DOXE25CA43 PO; +GABA100C PO; +HYDR-902 PO; +LEVO137T3 PO; +MUPI15CR9 TOP; +PANT40TA4 PO; -PREGABALIN 300 MG PO X1 PO ONE; +TEMA30CA PO; +TRAM50TA2 PO; -TRANEXAMIC ACID 750 MG in SOD CHLORIDE 0.9% 100 ML IVPB SCH; -TRANEXAMIC ACID 750 MG in SOD CHLORIDE 0.9% 92.5 ML IV ONE; -VANCOMYCIN 1 GM/NS 250 ML X1 BEFORE INCISION IVPB ONE; +[UNRECOGNIZED DRUG - CODE] TOP; -oxyCODONE (CR) 10 MG TAB [oxyCONTIN] X1 DOSE PO ONE; -traMADOL 50 MG TAB X 1 DOSE PO ONE
--- NOTE | 2016-04-13 12:22 | RADRPT ---
PROCEDURE: XR right knee. CLINICAL INDICATION: Knee pain. TECHNIQUE: AP and lateral weightbearing views are available for review. COMPARISON: 04/03/2016 FINDINGS: There is a total knee replacement. There is no evidence of loosening of the prosthesis. The osseous structures are normal in mineralization, architecture and alignment No acute fracture or dislocation is seen.No osseous lesions are identified. The soft tissues are unremarkable . there is a suprapat ellar joint effusion. There are anterior skin andrew. IMPRESSION: Suprapatellar joint effusion Unremarkable total knee replacement. RPTAT: HGDB .Dio Watkins MD, MD Date Time Electronically viewed and signed by .iDo Watkins MD, on 04/13/2016 12:21 .B/
--- NOTE | 2016-04-13 13:47 | HKNOTE ---
DATE OF SERVICE: 04/12/2016 INTERVAL HISTORY: The patient presents today for her first postoperative evaluation. She is 10 days status post right total knee arthroplasty. She is doing well overall. She has been taking [place] and tramadol for pain. She denies any fevers or chills. She did have a home health evaluation, but has not started home physical therapy at this point yet. She has been taking aspirin twice daily for DVT prophylaxis, as instructed. She presents today for her first postoperative evaluation. PHYSICAL EXAMINATION: On exam today she is alert and oriented x4 and in no acute distress. She is walking with a front-wheel walker. Exam of the right knee demonstrates the incision to be clean, dry and intact. Varus and valgus forces are stable. She does have some right lower extremity swelling. Homans sign is negative. Range of motion is 0-85 degrees. Compartments are otherwise soft. She is neurovascularly intact distally. IMAGING: X-rays of the right knee were obtained today and reviewed by me. They reveal good alignment of the femoral and tibial components. There is no fracture or dislocation identified. ASSESSMENT: Doing well approximately 10 days status post right total knee arthroplasty. PLAN: The patient is to continue taking aspirin twice daily for 6 weeks for DVT prophylaxis. The andrew were removed today, and Steri-Strips were applied. Despite low suspicion for a DVT, given she has been compliant with her prophylactic regimen, will send her to the ER for a stat venous Doppler to rule out DVT. If it is negative, she is to continue physical therapy with home health and transition to an outpatient physical therapy program. We will see her back in 4 weeks for a repeat evaluation. Dictated By: TESHA RIBERA for BOBBI SANDERSON/MILANA Conf#: [id number] DID#: [id number] MARYELLEN
== END | disposition home or self-care (01) ==
LOC: HKI 11:07
PROVIDERS: ATTEND Orthopaedic Surgery
DX: Z47.1 Aftercare following joint replacement surgery (principal); Z96.651 Presence of right artificial knee joint

== ENCOUNTER → 2016-05-11 | Outpatient (CLI) | payer BC | END | disposition home or self-care (01) | LOC: HKI 11:01 | PROVIDERS: ATTEND Orthopaedic Surgery | DX: Z47.1 Aftercare following joint replacement surgery (principal); Z96.651 Presence of right artificial knee joint; M17.11 Unilateral primary osteoarthritis, right knee ==

== ENCOUNTER → 2016-07-11 | Outpatient (CLI) | payer BC ==
--- NOTE | 2016-07-11 13:50 | RADRPT ---
PROCEDURE: XR right knee. CLINICAL INDICATION: Knee pain. TECHNIQUE: AP weightbearing, lateral weightbearing and sunrise views are available for review. COMPARISON: 04/13/2016 FINDINGS: There is a total knee replacement. There is no evidence of loosening of the prosthesis. There is no evidence of hardware failure. The osseous structures are normal in mineralization, architecture and alignment No acute fracture or dislocation is seen.No osseous lesions are identified. The soft tiss ues are unremarkable . there is a suprapatellar joint effusion. IMPRESSION: Unremarkable total knee replacement. Suprapatellar joint effusion RPTAT: HGDB .Dio Watkins MD, MD Date Time Electronically viewed and signed by .Dio Watkins MD, on 07/11/2016 13:50 .B/
== END | disposition home or self-care (01) ==
LOC: HKI 10:09
PROVIDERS: ATTEND Orthopaedic Surgery
DX: Z47.1 Aftercare following joint replacement surgery (principal); Z96.651 Presence of right artificial knee joint
CPT/HCPCS: 73562; Z7500; G0463